=== PATIENT | female | born 1985 | race Caucasian/White ===

== ENCOUNTER 2017-11-19 04:35 | Emergency (ER) | payer MEDICAID ==
[~2017-11-19] VITALS: Ht 167.6 cm; Wt 73.3 kg
[2017-11-19 04:36] VITALS: BP 126/83
== END 2017-11-19 06:11 | disposition home or self-care (01) ==
LOC: ED 06:00
DX: B35.4 Tinea corporis (principal)
CPT/HCPCS: 99283

== ENCOUNTER 2018-08-15 14:06 | Emergency (ER) | payer OTHER, MEDICAID ==
[~2018-08-15] VITALS: Ht 167.6 cm; Wt 79.0 kg
[2018-08-15] MEDS ORDERED: LORazepam 1MG TABLET PO ONE (14:30)
[2018-08-15 14:33] LABS: BASOPHILS # (AUTO) 0.04 x10^3/uL (0-0.1); BASOPHILS % (AUTO) 0 % (0-1); EOSINOPHILS # (AUTO) 0.13 x10^3/uL (0-0.4); EOSINOPHILS % (AUTO) 1 % (1-7); LYMPHOCYTES # (AUTO) 1.63 x10^3/uL (1-3.4); LYMPHOCYTES % (AUTO) 17 % (22-44); MD NO; MEAN CORPUSCULAR VOLUME 91.2 fL (80-100); MEAN PLATELET VOLUME 9.3 fL (7.4-10.4); MONOCYTES # (AUTO) 0.67 x10^3/uL (0.2-0.8); MONOCYTES % (AUTO) 7 % (2-9); NEUTROPHILS # (AUTO) 7.41 x10^3/uL (1.8-6.8); NEUTROPHILS % (AUTO) 75 % (42-75); PLATELET COUNT 242 x10^3/uL (130-400); RED BLOOD COUNT 4.14 x10^6/uL (3.82-5.3); RED CELL DISTRIBUTION WIDTH 12.6 % (9.6-15.2)
[2018-08-15 14:39] LABS: ALBUMIN 4.2 g/dL (3.4-5.0); ANION GAP 11 mmol/L (5-15); CALCIUM 8.6 mg/dL (8.5-10.1); CHLORIDE 106 mmol/L (98-107); CREATININE 0.83 mg/dL (0.55-1.02)
[2018-08-15 14:44] LABS: ALANINE AMINOTRANSFERASE 16 U/L (12-78); ALKALINE PHOSPHATASE 67 U/L (45-117); BILIRUBIN,TOTAL 0.9 mg/dL (0.2-1.0); TOTAL PROTEIN 8.3 g/dL (6.4-8.2)
[2018-08-15 14:52] LABS: ACETAMINOPHEN < 2 mcg/mL (10-30); SALICYLATE LEVEL < 1.7 mg/dL (2.8-20.0)
[2018-08-15] MEDS ORDERED: ZIPRASIDONE 20 MG INJ IM ONE ×2 (15:00→18:02)
[2018-08-15] MEDS ORDERED: LORazepam 1MG TABLET ONE (15:54)
[2018-08-15 16:44] LABS: AMPHETAMINE SCREEN, URINE Negative (Negative); BENZODIAZEPINE SCREEN, URINE Negative (Negative); CANNABINOID SCREEN, URINE Negative (Negative); COCAINE SCREEN, URINE Negative (Negative); METHADONE SCREEN, URINE Negative (Negative); OPIATE SCREEN, URINE Negative (Negative)
[2018-08-15 16:56] LABS: BARBITURATE SCREEN, URINE Negative (Negative)
[2018-08-16] MEDS ORDERED: ZIPRASIDONE 20 MG INJ IM ONE ×2 (00:06→00:30)
[2018-08-16] MEDS ORDERED: POTASSIUM CHLORIDE 20 MEQ TAB.ER.PRT ONE (02:01)
[2018-08-16] MEDS ORDERED: FUROSEMIDE 20 MG/2 ML ONE (02:01)
[2018-08-16] MEDS ORDERED: LORazepam 1MG TABLET ONE ×2 (06:05→19:07)
[2018-08-16 06:29] LABS: HCG UR SG 1.007 (1.003-1.030)
[2018-08-16] MEDS ORDERED: LORazepam 1MG TABLET PO ONE ×2 (06:30→19:00)
[2018-08-16] MEDS ORDERED: NICOTINE 14MG/24 HR PATCH.TD24 ONE (13:35)
[2018-08-16] MEDS ORDERED: NICOTINE 14MG/24 HR PATCH.TD24 TD ONE (14:00)
[2018-08-17] MEDS ORDERED: LORazepam 1MG TABLET ONE ×2 (03:20→06:44)
[2018-08-17] MEDS ORDERED: LORazepam 1MG TABLET PO ONE ×2 (04:00→07:00)
[2018-08-17 17:03] VITALS: BP 117/64
== END 2018-08-17 17:06 ==
LOC: ED 18:14 → EDIP 23:12 → UNDOADMIN 23:12 → ED 08-17 17:06
DX: R45.851 Suicidal ideations (principal); F22 Delusional disorders; F60.0 Paranoid personality disorder; E11.9 Type 2 diabetes mellitus without complications; F17.200 Nicotine dependence, unspecified, uncomplicated
CPT/HCPCS: 36415; 80053; 80307; 80329; 81025; 83036; 84703; 85025; 96372; 99285; J3486; 96374; G0480

== ENCOUNTER 2018-11-19 21:11 | Emergency (ER) | payer MEDICAID, OTHER ==
[~2018-11-19] VITALS: Ht 165.1 cm; Wt 80.0 kg
[2018-11-19 21:12] VITALS: BP 131/83
== END 2018-11-19 22:18 | disposition home or self-care (01) ==
LOC: ED 22:05
DX: K04.7 Periapical abscess without sinus (principal); K08.89 Other specified disorders of teeth and supporting structures
CPT/HCPCS: 99283